=== PATIENT | female | born 1985 | race African-American/Black ===

== ENCOUNTER 2018-05-07 22:48 | Emergency (ER) | payer OTHER ==
[~2018-05-07] VITALS: Ht 160 cm; Wt 61.7 kg
[2018-05-08] MEDS ORDERED: MACRODANTIN100 M1 PO (02:43)
== END 2018-05-08 02:53 | disposition home or self-care (01) ==
LOC: ER 22:48
DX: O26.892 Other specified pregnancy related conditions, second trimester (principal); R10.32 Left lower quadrant pain; Z34.82 Encounter for supervision of other normal pregnancy, second trimester

== ENCOUNTER 2018-09-08 15:15 | Inpatient (IN) | payer OTHER ==
[~2018-09-08] VITALS: Ht 160 cm; Wt 58.1 kg
[~2018-09-08 15:15] MED LIST: MACRODANTIN100 M1 PO
[2018-09-29] MEDS ORDERED: IRON325 MG PO (06:03)
[2018-09-29] MEDS ORDERED: PRENATABS RX T1 EACH PO (06:03)
== END 2018-10-01 13:14 | disposition home or self-care (01) | DRG 768 ==
LOC: LDR 09-29 05:14 → OB/GYN 09-29 16:53
PROVIDERS: ADMIT Obstetrics & Gynecology
PROC: 10E0XZZ Delivery of Products of Conception, External Approach (ICD-10-PCS; principal; 2018-09-29)
PROC: 0DQR0ZZ Repair Anal Sphincter, Open Approach (ICD-10-PCS; 2018-09-29)
PROC: 4A0HXFZ Measurement of Products of Conception, Cardiac Rhythm, External Approach (ICD-10-PCS; 2018-09-29)
DX: O70.20 Third degree perineal laceration during delivery, unspecified (principal); Z37.0 Single live birth; Z3A.39 39 weeks gestation of pregnancy

== ENCOUNTER 2018-09-16 10:05 | Outpatient (CLI) | payer OTHER | END 2018-09-16 11:16 | disposition home or self-care (01) | LOC: NST 10:05 | DX: Z34.83 Encounter for supervision of other normal pregnancy, third trimester (principal) ==

== ENCOUNTER → 2018-09-26 | Outpatient (CLI) | payer OTHER ==
[~2018-09-26] MED LIST changes: +IRON325 MG PO; +PRENATABS RX T1 EACH PO
== END | disposition home or self-care (01) ==
LOC: NST 13:43
DX: Z34.83 Encounter for supervision of other normal pregnancy, third trimester (principal)

== ENCOUNTER 2018-09-28 10:59 | Outpatient (CLI) | payer OTHER ==
[~2018-09-28 10:59] MED LIST changes: -IRON325 MG PO; -PRENATABS RX T1 EACH PO
[2018-09-29] MEDS ORDERED: PRENATABS RX T1 EACH PO (06:03)
[2018-09-29] MEDS ORDERED: IRON325 MG PO (06:03)
== END 2018-09-28 12:04 | disposition home or self-care (01) ==
LOC: NST 10:59
DX: Z34.83 Encounter for supervision of other normal pregnancy, third trimester (principal)

== ENCOUNTER 2023-05-23 10:38 | Emergency (ER) | payer OTHER ==
[~2023-05-23] VITALS: Ht 160 cm; Wt 65.3 kg
[~2023-05-23 10:38] MED LIST changes: +IRON325 MG PO; +PRENATABS RX T1 EACH PO
[2023-05-23] MEDS ORDERED: COZAAR50 MG PO (11:11)
[2023-05-23 13:03] LABS: HEMATOCRIT 39.6 % (36.0-45.00); MEAN CELL VOLUME 81.9 fL (80.00-100.00); MEAN CORPUSCULAR HEMOGLOBIN 26.9 pg (27.00-32.0); MEAN CORPUSCULAR HGB CONC 32.9 g/dl (32.0-36.0); PLATELET COUNT 350 K/uL (150-450); RED BLOOD COUNT 4.84 M/uL (4.00-6.00); RED CELL DISTRIBUTION WIDTH 14.4 % (11.5-14.5)
[2023-05-23 13:04] LABS: PH,URINE 5.5 (5.0-8.0); URINE APPEARANCE Clear; URINE BILIRRUBIN Negative (NEGATIVE); URINE BLOOD Negative; URINE COLOR Yellow; URINE GLUCOSE Negative (NEGATIVE); URINE LEUKOCYTE Moderate; URINE NITRATE Negative; URINE PROTEIN Negative (NEGATIVE); URINE UROBILINOGEN 0.2 E.U./dl
[2023-05-23 13:05] LABS: URINE BACTERIA 1031.9 uL (0.0-1933); URINE EPITHELIAL CELLS 17.4 uL (0.0-38.8); URINE RBC 7.7 uL (0.0-20.8); URINE WBC 87.1 uL (0.0-23.2)
[2023-05-23 13:44] LABS: ALBUMIN 3.3 gm/dL (3.4-5.0); BILIRUBIN TOTAL 0.31 mg/dL (0.3-1.2); CALCIUM 9.3 mg/dL (8.5-10.1); CREATININE SERUM 0.76 mg/dL (0.55-1.02); GFR 84.72; GLOBULINA 4.5 G/DL (2.4-3.5); POTASSIUM 3.22 mEq/L (3.5-5.1); TOTAL PROTEIN 7.8 gm/dL (6.4-8.2)
== END 2023-05-23 15:58 | disposition home or self-care (01) ==
LOC: ER 10:39
PROVIDERS: Emergency Medicine
DX: I10 Essential (primary) hypertension (principal); M79.10 Myalgia, unspecified site; Z91.013 Allergy to seafood